=== PATIENT | female | born 1970 | race Caucasian/White ===

== ENCOUNTER 2023-09-05 16:24 | Emergency (ER) | payer SELFPAY ==
[2023-09-05] MEDS ORDERED: Ondansetron ODT 4 MG TAB ONE (17:50)
[2023-09-05] MEDS ORDERED: Meclizine HCl 25 MG TAB ONE (17:50)
[2023-09-05] MEDS ORDERED: Ciprofloxacin 0.3% Ophth Soln 2.5 ml Bottle L EAR SCH (18:00)
== END 2023-09-05 17:22 | disposition home or self-care (01) ==
LOC: ERS 16:24
DX: H72.92 Unspecified perforation of tympanic membrane, left ear (principal); H66.92 Otitis media, unspecified, left ear; R42 Dizziness and giddiness
CPT/HCPCS: 93005; Q0162